=== PATIENT | male | born 1930 | race Caucasian/White ===

== ENCOUNTER 2016-12-04 03:20 | Inpatient (IN) ==
[2016-12-04 04:05] LABS: Basophils # 0.1 10*3/uL (0.0-0.2); Basophils % 0.4 % (0.0-0.8); Eosinophils % 0.1 % (0.00-10.9); Hemoglobin 14.2 GM/DL (14.0-18.0); Immature Granulocytes % 0.5 %; Immature Granulocytes Absolute 0.08 #; Lymphocytes % 5.9 % (21.2-54.2); Mean Corpuscular HGB Conc 34.6 GM/DL (32-36); Mean Corpuscular Hemoglobin 30 PG (27-34); Mean Corpuscular Volume 86.7 FL (87-102); Mean Platelet Volume 10.5 FL (9.6-12.0); Monocytes # 1.7 10*3/uL (0.11-0.8); Monocytes % 9.7 % (1.7-12.7); Neutrophils # 14.2 10*3/uL (1.4-7.4); Neutrophils % 83.4 % (38.7-73.9); Platelet Count 130 T/CUMM (130-400); Red Blood Count 4.73 MC/CUMM (3.8-5.5); Red Cell Distribution Width 13.2 % (9.3-17.3)
[2016-12-04 04:11] LABS: Apearance,Urine Slightly Hazy (Clear); Bacteria,Urine Occasional /HPF (Few); Bilirubin,Urine Negative (Negative); Blood, Urine Negative (Negative); Glucose,Urine (UA) 50 mg/dL (Negative); Hyaline Casts,Urine 1 /LPF (0-3); Ketones,Urine 5 mg/dL (Negative); Mucus,Urine Occasional /LPF (Occasional); Nitrite,Urine Negative (Negative); Protein,Urine 30 MG/DL; RBC,Urine 1 /HPF (0-4); Squamous Epithelial Cell,Urine Occasional /HPF (0-10); Urine Color Yellow (Yellow); Urine Urobilinogen < 2.0 EU/DL (0.2-1.0); WBC,Urine 28 /HPF (0-6)
[2016-12-04 04:11] LABS: ABG Base Excess 1.6 MMOL/L (-2.5-2.5); ABG HCO3 25.7 MMOL/L (20-26); ABG Oxygen Saturation 93.2 % (95-100); ABG PCO2 37.4 MM HG (35-48); ABG PH 7.442 (7.35-7.45); ABG PO2 64.3 MM HG (80-95); ABG TCO2 21.8 MMOL/L (23-27); Allen Test Positive
[2016-12-04 04:17] LABS: Albumin 3.4 G/DL (3.4-5.0); Bilirubin,Total 0.9 MG/DL (0.2-1.0); Calcium 8.7 MG/DL (8.5-10.1); Osmolality,Calculated 291.3 MOS/KG (273-304); Potassium 3.9 MMOL/L (3.5-5.1); Total Protein 7.2 G/DL (6.4-8.3)
[2016-12-04 04:18] LABS: Troponin I Only 0.106 NG/ML (0.00-0.045)
--- NOTE | 2016-12-04 04:24 | Emergency Department Note ---
IJoyce Sierra, am scribing for, and in the presence of, Mehrdad Yanes MD 03: 50. IFarzana Andrew, MD, personally performed the services described in this documentation, ascribed by Faviola Cook in my presence, and it is both accurate and complete [phone] . Arrival - Arrival Chief Complaint: Shortness of Breath Stated Complaint: shortness of breath, fever ED Nursing Triage Note: C/C sent from [facility] for fever and shortness of breath, started tonight Mode of Arrival: Stretcher Limitations: No Limitations Source: Family Time Seen by Provider: 12/04/16 03:39 - History of Present Illness HPI Narrative: Pt is a 86 y/o male that was brought to the ED via EMS from [facility] with c/o SOB and fever that began about 2 hours ago according to family. Pt is somnolent and not answering questions so HPI was obtained from family present. Family present has not seen pt in 3 days so has been unaware of pt's sxs. Family states she is unaware if pt has had diarrhea or cough but pt has had weight loss. Family denies pt being on O2 at home. Family reports pt has a PMHx of cardiomyopathy, Alzheimer disease, and a pacemaker. Family states pt has a Hx of UTIs and being hospitalized for being sepsis. Family states [place] sent pt due to possible pneumonia. Family reports pt has not been acting differently lately. No other complaints/pain in ED. Onset (ago): hour(s) Consistency: constant Severity: moderate Severity scale (1-10): 7 Allergies/Adverse Reactions: Allergies Allergy/AdvReac Type Severity Reaction Status Date / Time Iodinated Contrast Media - Allergy Severe SHORTNESS Verified 05/21/15 07:21 Oral and OF BREATH cefuroxime [From Ceftin] Allergy Unknown/Unable Verified 12/04/16 03:33 to obtain clarithromycin Allergy Unknown/Unable Verified 12/04/16 03:33 to obtain iodine Allergy ANAPHYLAXIS Verified 12/04/16 03:33 acetaminophen [From Tylenol] AdvReac Intermediate Confusion Verified 05/21/15 07 :21 Home Medications: Home Medications Medication Instructions Recorded Confirmed Type Ascorbic Acid [Vitamin C] 1,000 mg PO DAILY 05/21/15 05/21/15 History Docusate Sodium Cap [Colace Cap] 100 mg PO DAILY 05/21/15 05/21/15 History Donepezil [Aricept] 10 mg PO DAILY 05/21/15 05/21/15 History Dutasteride [Avodart] 0.5 mg PO DAILY 05/21/15 05/21/15 History Furosemide Tab [Lasix Tab] 40 mg PO DAILY 05/21/15 05/21/15 History Memantine [Namenda] 10 mg PO BID 05/21/15 05/21/15 History Oxymetazoline 0.05% Nasal Spr 2 spray BOTH NARES BID PRN 05/21/15 05/21/15 History [Afrin Nasal [place]] Polyethylene Glycol Powder 17 gm PO DAILY PRN 05/21/15 05/21/15 History [Miralax] Tamsulosin [Flomax] 0.4 mg PO BID 05/21/15 05/21/15 History Venlafaxine HCl [Effexor XR] 150 mg PO DAILY 05/21/15 05/21/15 History Review of System - Review of System 12 point system: reviewed and no additional remarkable complaints except as stated (ROS is limited due to family present not seeing pt in a few days and pt not answering questions) - Review of System Constitutional: Present: fever Respiratory: Present: other (SOB) Medical,Surgical,& Family Hx - Medical History Cardio: History of: Cardiac Dysrhythmia (A-fib), Pacemaker Neurology: History of: Dementia (Alheimer's) No history of: Seizures Endocrine: History of: Dyslipidemia Gastrointestinal: History of: GI Problems (Constipation) - Social History Smoking Status: Unknown if ever smoked Frequency of Alcohol Use: None Type of Drug Use: None Exam Vital Signs: Vital Signs Temperature 98.3 F 12/04/16 03:20 Pulse Rate 106 H 12/04/16 03:20 Respiratory Rate 24 12/04/16 03:20 Blood Pressure 97/61 12/04/16 03:20 O2 Sat by Pulse Oximetry 88 L 12/04/16 03:20 - General Exam limited due to: other (altered but baseline; pt not answering questions) General appearance: other (somnolent) - Head Head exam: Present: atraumatic, normocephalic - Eye Eye exam: Present: PERRL, EOMI - ENT ENT exam: Present: mucous membranes moist. Absent: mucous membranes dry - Neck Neck exam: Present: full ROM - Chest Chest inspection: Present: symmetric chest wall rise, other (pacemaker that can be palpated on the left anterior chest) - Respiratory Respiratory exam: Present: normal lung sounds bilaterally, other (tachypnic). Absent: respiratory distress - Cardiovascular Cardiovascular exam: Present: regular rate, normal rhythm, normal heart sounds - Abdominal Exam Abdominal exam: Present: soft - Extremities Exam Extremities exam: Present: other (1+ piting edema in the lower extremities) - Neurological Exam Neurological exam: Present: alert (alert but not answering questions) - Psychiatric Psychiatric exam: Present: normal affect, normal mood - Skin Skin exam: Present: warm, dry Course Course Narrative: CXR with evidence of new infiltrate along right heart border. Levaquin given. Elevated WBC 17. Discussed with Hospitalist for admit for further management. Results - Labs CBC & BMP: 12/04/16 03:48 12/04/16 03:48 Lab Results: I have reviewed the patients labs Labs: Laboratory Tests 12/04/16 12/04/16 03:40 03:48 WBC 17.0 H Hct 41.0 L MCV 86.7 L Neut % (Auto) 83.4 H Lymph % (Auto) 5.9 L Neut # (Auto) 14.2 H Lymph # (Auto) 1.0 L Coke # (Auto) 1.7 H ABG pO2 64.3 L ABG Total CO2 21.8 L ABG O2 Saturation 93.2 L Laboratory Tests 12/04/16 03:48 Urine Color Yellow Urine Appearance Slightly hazy Urine pH 5.0 Ur Specific Heth 1.020 Urine Protein 30 Urine Glucose (UA) 50 Urine Ketones 5 Urine Blood Negative Urine Nitrate Negative Urine Bilirubin Negative Urine Urobilinogen < 2.0 H Urine Leukocytes Small H Urine RBC 1 Urine WBC 28 Urine WBC Clumps Few Ur Squamous Epith Cells Occasional Urine Bacteria Occasional Hyaline Casts 1 Urine Mucus Occasional Laboratory Tests 12/04/16 03:48 BUN 24 H Glucose 223 H Troponin I 0.106 H Globulin 3.8 H Albumin/Globulin Ratio 0.8 L Laboratory Tests 12/04/16 03:48 D-Dimer, Quantitative 0.7 Laboratory Tests 12/04/16 03:48 B-Natriuretic Peptide 710 H - Diagnostic Findings Procedure: Chest x-ray: image reviewed by me (Chronic changes as well as new infiltrate along right heart border per my read) Disposition Clinical Impression: Pneumonia Case discussed with: patient, patient's family Disposition: Still a Patient Condition: Guarded
[2016-12-04] MEDS ORDERED: LEVOFLOXACIN INJ 750 MG in PREMIX 1 EACH IV STA (04:25)
[2016-12-04] MEDS ORDERED: LEVOFLOXACIN INJ 150 ML IV ONE (04:54)
--- NOTE | 2016-12-04 06:12 | Hospitalist History & Physical ---
Assessment and Plan (1) Sepsis Status: Acute Assessment and plan: Health Care associated pnemonia/sepsis/acute hypoxic respiratory failure - oxygen - IVF - IV Doxycycline /Levaquin; will escalate therapy if no improvement - Nebulizer treatments - No blood cultures started in ER prior to ABX - D-dimer marginally elevated; will opt not to image at this point - echo ordered - will monitor Current Visit: Yes (2) Acute respiratory failure Status: Acute Assessment and plan: see above Current Visit: Yes Qualifiers: Respiratory failure complication: hypoxia Qualified Code(s): J96.01 - Acute respiratory failure with hypoxia (3) Elevated troponin Status: Acute Assessment and plan: Elevated cardiac enzymes - may be due to infection - telemetry - serial cardiac enzymes - echo ordered - will monitor Current Visit: Yes (4) Pneumonia Status: Acute Current Visit: Yes History of Present Illness Chief complaint: Shortness of breath History of present illness: Mr. Elena is a 86 year old male [facility] resident at [facility] with a history of dementia, coronary artery disease, and pacemaker that presented to ER for acute shortness of breath that started about 130A< this morning. Patient has also had some coughing and subjective. Daughter is at bedside. She reports that when she showed up to see patient he was having some difficulty breathing so she instructed penitentiary to send him to the ER. Due to dementia, patient is unable to participate in the history taking. Per daughter patient is at his mental baseline. Patient had a UTI about 3 weeks ago. ER workup showed the patient had pneumonia with sepsis (hypoxia, tachycardia, leukocytosis, and fever. Home Medications Medication Instructions Recorded Confirmed Type Ascorbic Acid [Vitamin C] 1,000 mg PO DAILY 05/21/15 05/21/15 History Docusate Sodium Cap [Colace Cap] 100 mg PO DAILY 05/21/15 05/21/15 History Donepezil [Aricept] 10 mg PO DAILY 05/21/15 05/21/15 History Dutasteride [Avodart] 0.5 mg PO DAILY 05/21/15 05/21/15 History Furosemide Tab [Lasix Tab] 40 mg PO DAILY 05/21/15 05/21/15 History Memantine [Namenda] 10 mg PO BID 05/21/15 05/21/15 History Oxymetazoline 0.05% Nasal Spr 2 spray BOTH NARES BID PRN 05/21/15 05/21/15 History [Afrin Nasal [place]] Polyethylene Glycol Powder 17 gm PO DAILY PRN 05/21/15 05/21/15 History [Miralax] Tamsulosin [Flomax] 0.4 mg PO BID 05/21/15 05/21/15 History Venlafaxine HCl [Effexor XR] 150 mg PO DAILY 05/21/15 05/21/15 History Allergies Allergy/AdvReac Type Severity Reaction Status Date / Time Iodinated Contrast Media - Allergy Severe SHORTNESS Verified 05/21/15 07:21 Oral and OF BREATH cefuroxime [From Ceftin] Allergy Unknown/Unable Verified 12/04/16 03:33 to obtain clarithromycin Allergy Unknown/Unable Verified 12/04/16 03:33 to obtain iodine Allergy ANAPHYLAXIS Verified 12/04/16 03:33 acetaminophen [From Tylenol] AdvReac Intermediate Confusion Verified 05/21/15 07 :21 Medical,Surgical,& Family Hx - Medical History Cardio: History of: Cardiac Dysrhythmia (A-fib), Pacemaker Neurology: History of: Dementia (Alheimer's) No history of: Seizures Endocrine: History of: Dyslipidemia Gastrointestinal: History of: GI Problems (Constipation) - Social History Smoking Status: Unknown if ever smoked Frequency of Alcohol Use: None Type of Drug Use: None ROS unobtainable: due to mental status Exam - Constitutional Vitals: Period Temp Pulse Resp BP Sys/Reid Pulse Ox Last 24 Hr 98.3 F-98.3 F 106-106 24-24 97-97/61-61 88 General appearance: normal weight, no acute distress - Head Head exam: Present: normal inspection, normocephalic - Neck Neck exam: Present: normal inspection - Respiratory Respiratory exam: Present: decreased breath sounds, rhonchi (on the right), other (coarse breath sounds throughout) - Cardiovascular Cardiovascular exam: Present: diastolic murmur, regular rate and rhythm, systolic murmur - GI/Abdominal GI/Abdominal exam: Present: normal bowel sounds, soft. Absent: distended, tenderness - Extremities Exam Extremities exam: Absent: edema - Neurological Exam Neurological exam: Present: altered (but at baseline) - Skin Skin exam: Present: normal color, warm, dry Results - Labs CBC & BMP: 12/04/16 03:48 12/04/16 03:48 - EKG EKG results: interpreted by REEMA - Diagnostic Findings Procedure: Chest x-ray: pending
[2016-12-04] MEDS ORDERED: LACTULOSE 20 GM/30 ML UDCUP PO PRN (08:05)
[2016-12-04] MEDS ORDERED: DOCUSATE SODIUM 100 MG CAPSULE PO PRN (08:05)
[2016-12-04] MEDS ORDERED: guaiFENesin/DM ER 600-30 MG TABLET PO PRN (08:05)
[2016-12-04] MEDS ORDERED: ONDANSETRON 4 MG/2 ML VIAL IV PRN (08:05)
--- NOTE | 2016-12-04 08:33 | XRay Report ---
XR chest 1V portable Indication: Shortness of breath Comparison: 21 May 2015 Findings: The heart and mediastinum are stable in size and configuration. Pacemaker device is unchanged in position. The pulmonary vascularity is increased with bilateral increased interstitial lung density. No other lung infiltrates, effusions, pneumothorax or other abnormality is demonstrated. Impression: Findings suggest cardiac decompensation. PROCEDURE INTERPRETED AT [facility] DEPARTMENT OF RADIOLOGY Final Report Signed by: Dr. Aly Webb
--- NOTE | 2016-12-04 09:19 | EKG Report ---
Stationary ECG Study [facility] ER Test Date: 12/04/2016 3:23:20 AM Pat Name: SAGAR HUERTA Department: Room: 517 Gender: M Alteration Worker: MATTY : 1930 Requested by: Mehrdad Yanes Order Number: [id number] Reading MD: JESUS GANDARA Intervals [place] Rate: 92 P: 55 HI: 311 QRS: 70 QRSD: 130 T: 4 QT: 408 QTc: 458 Interpretive Statements ELECTRONIC ATRIAL PACEMAKER LEFT VENTRICULAR HYPERTROPHY AND ST-T CHANGE Electronically Signed On 12-06-16 16:29:45 CDT by JESUS GANDARA [email or web address]
[2016-12-04] MEDS: ENOXAPARIN 40 MG/0.4 ML SYRINGE SUBCUT SCH (09:51)
[2016-12-04] MEDS: SODIUM CHLORIDE 0.9% 1,000 ML IV SCH (09:52)
[2016-12-04] MEDS: PANTOPRAZOLE 40 MG TABLET PO SCH (09:52)
[2016-12-04] MEDS: DOXYCYCLINE HYCLATE INJ 100 MG in SODIUM CHLORIDE 0.9% 100 ML IV SCH ×2 (09:52→20:43)
[2016-12-04] MEDS: IBUPROFEN 600 MG TABLET PO PRN ×2 (11:23→19:35)
[2016-12-04] MEDS: ALBUTEROL/IPRATROPIUM 3 ML NEB RESP TX SCH ×3 (13:43→20:28)
[2016-12-04 18:48] LABS: Troponin I Only 0.098 NG/ML (0.00-0.045)
[2016-12-05] MEDS: ALBUTEROL/IPRATROPIUM 3 ML NEB RESP TX SCH ×4 (01:03→19:30)
[2016-12-05] MEDS: SODIUM CHLORIDE 0.9% 1,000 ML IV SCH ×3 (01:15→17:40)
[2016-12-05 04:26] LABS: Basophils # 0.1 10*3/uL (0.0-0.2); Basophils % 0.5 % (0.0-0.8); Eosinophils % 0.2 % (0.00-10.9); Hematocrit 38.4 VOL% (42.0-52.0); Hemoglobin 12.7 GM/DL (14.0-18.0); Immature Granulocytes % 0.6 %; Immature Granulocytes Absolute 0.08 #; Lymphocytes # 1.2 10*3/uL (1.4-4.0); Lymphocytes % 9.3 % (21.2-54.2); Mean Corpuscular HGB Conc 33.1 GM/DL (32-36); Mean Corpuscular Hemoglobin 29 PG (27-34); Mean Corpuscular Volume 88.9 FL (87-102); Mean Platelet Volume 11.6 FL (9.6-12.0); Monocytes % 7.8 % (1.7-12.7); Neutrophils # 10.8 10*3/uL (1.4-7.4); Neutrophils % 81.6 % (38.7-73.9); Platelet Count 102 T/CUMM (130-400); Red Blood Count 4.32 MC/CUMM (3.8-5.5); Red Cell Distribution Width 13.4 % (9.3-17.3); White Blood Count 13.3 T/CUMM (4-12)
[2016-12-05 04:55] LABS: Albumin 2.6 G/DL (3.4-5.0); Bilirubin,Total 1.2 MG/DL (0.2-1.0); Calcium 8.1 MG/DL (8.5-10.1); Osmolality,Calculated 298.4 MOS/KG (273-304); Potassium 3.8 MMOL/L (3.5-5.1); Total Protein 6.1 G/DL (6.4-8.3)
[2016-12-05 04:56] LABS: Troponin I Only 0.077 NG/ML (0.00-0.045)
[2016-12-05] MEDS: LEVOFLOXACIN INJ 500 MG in PREMIX 1 EACH IV SCH (05:48)
[2016-12-05] MEDS: ENOXAPARIN 40 MG/0.4 ML SYRINGE SUBCUT SCH (08:29)
[2016-12-05] MEDS: PANTOPRAZOLE 40 MG TABLET PO SCH (08:29)
[2016-12-05] MEDS: DOXYCYCLINE HYCLATE INJ 100 MG in SODIUM CHLORIDE 0.9% 100 ML IV SCH ×2 (08:29→20:38)
[2016-12-05 09:52] LABS: Troponin I Only 0.066 NG/ML (0.00-0.045)
--- NOTE | 2016-12-05 11:01 | Hospitalist Progress Note ---
Assessment and Plan (1) Healthcare-associated pneumonia Status: Acute Assessment and plan: continue with IV antibiotics BC-negative so far Current Visit: Yes (2) Acute respiratory failure Status: Acute Assessment and plan: with Hypoxia and elevated Ddimer. We will get a VQ scan and doppler of the legs, patient has allergies to dye. Current Visit: Yes Qualifiers: Respiratory failure complication: hypoxia Qualified Code(s): J96.01 - Acute respiratory failure with hypoxia (3) Elevated troponin Status: Acute Assessment and plan: Levels are trending downwards. patient has a pacemaker in place.This may may be due to ? infection vs cardiac bruise Plan Echocardiogram get more levels Current Visit: Yes (4) Dementia Status: Acute Assessment and plan: Patient was confused but awake. Plan CT head to r/o any acute issues Current Visit: Yes Hospitalist: Subjective Interval history: Patient was awake but confused, he has an underlying dementia. Exam - Constitutional Vitals: Period Temp Pulse Resp BP Sys/Reid Pulse Ox Last 24 Hr 97.2 F-99.7 F 61-87 19-28 105-145/54-79 89-99 General appearance: no acute distress - Head Head exam: Present: normal inspection - Respiratory Respiratory exam: Present: clear to auscultation bilaterally - Cardiovascular Cardiovascular exam: Present: regular rate and rhythm - GI/Abdominal GI/Abdominal exam: Present: normal bowel sounds - Extremities Exam Extremities exam: Present: other - Neurological Exam Neurological exam: Present: alert, other (confused) Results - Labs CBC & BMP: 12/05/16 03:24 12/05/16 03:24 Lab Results: I have reviewed the past 24 hour labs
--- NOTE | 2016-12-05 12:01 | CT Report ---
CT brain Indication: Altered mental status Comparison: 12 January 2012 Technique: Axial CT imaging of the brain is performed without contrast with 3 mm increments. Findings: No evidence of hemorrhage, mass mass effect midline shift or acute infarct seen. There is moderate to severe diffuse cerebral atrophy. There are areas of decreased density seen within the white matter. Otherwise the brain parenchyma attenuation and differentiation appears within normal limits. The ventricles and cisterns are normal in caliber. No cranial or skull base abnormality is identified. Impression: No evidence of acute process or interval change. This CT exam was performed using one or more the following dose reduction techniques: Automated exposure control, adjustment of the MA and/or KV according to patient size, or use of iterative reconstruction technique. PROCEDURE INTERPRETED AT [facility] DEPARTMENT OF RADIOLOGY Final Report Signed by: Dr. Aly Webb
[2016-12-05 12:11] LABS: Troponin I Only 0.072 NG/ML (0.00-0.045)
--- NOTE | 2016-12-05 14:30 | Nuclear Medicine Report ---
Nuclear medicine ventilation/perfusion scan Indication: Shortness of breath Findings: Ventilation scan: The patient received 40 mCi of 90 9M technetium DTPA aerosolized. There is normal distribution of radiotracer in both lungs. Perfusion scan: Patient received 5.0 mCi of 90 9M technetium MAA intravenously. There is normal in distribution of radiotracer in both lungs without evidence of segmental or greater defects. Impression: Normal nuclear medicine ventilation perfusion scan. This indicates low probability for pulmonary embolism. PROCEDURE INTERPRETED AT [facility] DEPARTMENT OF RADIOLOGY Final Report Signed by: Dr. Aly Webb
--- NOTE | 2016-12-05 14:46 | Ultrasound Report ---
Venous Doppler ultrasound bilateral lower extremities Indication: Shortness of breath Comparison: None available Findings: No evidence of echogenic, noncompressible thrombus seen in the visualized veins of the extremities. Color Doppler venous waveform pattern is within normal limits. Impression: No evidence of deep venous thrombosis. Ultrasound images stored and captured. PROCEDURE INTERPRETED AT [facility] DEPARTMENT OF RADIOLOGY Final Report Signed by: Dr. Aly Webb
--- NOTE | 2016-12-05 18:03 | ECHO Report ---
Royce Elena Exam Date: 12/04/2016 12:02 Referring Physician: Technologist: Kasia Burt Age: 86 Ht (in): 70 Wt (lb): 160 Gender: M Exam Location: [facility] Echo Indications: pacemaker, elevated troponin, acute resp failure, sepsis, pneumonia BP: 107 / 50 HR: 63 Rhythm: Sinus Technical Quality: Technically difficult study, limited IMPRESSIONS 1. This is a very limited study overall poor visualization. 2. The left ventricle is probably upper limits of normal size but poorly visualized. Ejection fraction is 50% plus/minus. Wall thickness is difficult to accurately measure. 3. Right ventricle mitral probably normal size and there is a possibility of pacemaker leads present. 4. Mildly increased left atrial size 5. Mitral valve sclerotic and thickened with possible mild regurgitation. 6. Valve is not well visualized but appears to be thick sclerotic and thickened. There is probably some element of aortic valve stenosis and may be moderate. 7. Tricuspid and pulmonic valves were not adequately visualized. 8. There appears to be a pleural effusion present. MEASUREMENTS (Male / Female) Normal Values 2D ECHO LV Diastolic Diameter PLAX 3.6 cm 4.2 - 5.9 / 3.9 - 5.3 cm LV Systolic Diameter PLAX 2.5 cm LV Fractional Shortening PLAX 31.5 % IVS Diastolic Thickness 2.1 cm 0.6 - 1.0 / 0.6 - 0.9 cm LVPW Diastolic Thickness 1.4 cm 0.6 - 1.0 / 0.6 - 0.9 cm RV Internal Dim ED PLAX 2.3 cm Aortic Root Diameter 2.5 cm LA Systolic Diameter LX 4.5 cm 3.0 - 4.0 / 2.7 - 3.8 cm FINDINGS Left Ventricle Left ventricle is probably upper limits of normal size. Left ventricular function is difficult to accurately determine but may be in the lower limits of normal but could be slightly depressed. Ejection fraction is probably 50% plus/minus. Wall thickness is difficult to accurately measure. Right Ventricle Normal right ventricular size. Possible pacemaker lead present. Right Atrium Normal right atrial size. There appears possibly be a pacemaker lead present. Left Atrium Mildly increased left atrial diameter. Mitral Valve Mitral valve is sclerotic and thickened with possible mild regurgitation. Aortic Valve Aortic valve is not well-visualized. It does appear to be sclerotic and thickened. The severity of aortic stenosis present is difficult to measure but may be moderate. Tricuspid Valve Morphologically normal tricuspid valve. Trace tricuspid valve regurgitation. Pulmonic Valve Pulmonic valve not well visualized. Pericardium No pericardial effusion. + pleural effusion. Aorta Normal size aortic root and proximal ascending aorta. Perez Nichole MD (Electronically Signed) Final Date: 05 Dec 2016 18:02
[2016-12-06] MEDS: ALBUTEROL/IPRATROPIUM 3 ML NEB RESP TX SCH ×4 (00:22→20:28)
[2016-12-06] MEDS: LEVOFLOXACIN INJ 500 MG in PREMIX 1 EACH IV SCH (05:17)
[2016-12-06 05:55] LABS: Basophils # 0.1 10*3/uL (0.0-0.2); Basophils % 0.5 % (0.0-0.8); Eosinophils # 0.2 10*3/uL (0.0-0.87); Eosinophils % 2.2 % (0.00-10.9); Hematocrit 38.6 VOL% (42.0-52.0); Hemoglobin 12.7 GM/DL (14.0-18.0); Immature Granulocytes % 0.4 %; Immature Granulocytes Absolute 0.04 #; Lymphocytes # 1.4 10*3/uL (1.4-4.0); Lymphocytes % 12.9 % (21.2-54.2); Mean Corpuscular HGB Conc 32.9 GM/DL (32-36); Mean Corpuscular Hemoglobin 30 PG (27-34); Mean Platelet Volume 11.7 FL (9.6-12.0); Monocytes # 0.9 10*3/uL (0.11-0.8); Monocytes % 8.4 % (1.7-12.7); Neutrophils # 8.4 10*3/uL (1.4-7.4); Neutrophils % 75.6 % (38.7-73.9); Platelet Count 110 T/CUMM (130-400); Red Blood Count 4.29 MC/CUMM (3.8-5.5); Red Cell Distribution Width 13.7 % (9.3-17.3); White Blood Count 11.1 T/CUMM (4-12)
[2016-12-06 06:27] LABS: Calcium 8.1 MG/DL (8.5-10.1); Osmolality,Calculated 296.3 MOS/KG (273-304); Potassium 3.8 MMOL/L (3.5-5.1)
[2016-12-06] MEDS: PANTOPRAZOLE 40 MG TABLET PO SCH (08:33)
[2016-12-06] MEDS: ENOXAPARIN 40 MG/0.4 ML SYRINGE SUBCUT SCH (08:33)
[2016-12-06] MEDS: DOXYCYCLINE HYCLATE INJ 100 MG in SODIUM CHLORIDE 0.9% 100 ML IV SCH ×2 (08:34→20:38)
--- NOTE | 2016-12-06 08:56 | Hospitalist Progress Note ---
<Shannon Laguerre - Last Filed: 12/06/16 08:58> Assessment and Plan (1) Acute respiratory failure Status: Acute Assessment and plan: VQ scan and venous doppler negative for PE; respiratory status stable at this time. Will monitor. Current Visit: Yes Qualifiers: Respiratory failure complication: hypoxia Qualified Code(s): J96.01 - Acute respiratory failure with hypoxia (2) Dementia Status: Acute Current Visit: Yes (3) Elevated troponin Status: Acute Assessment and plan: Troponins have normalized; no complaints of chest pain or EKG changes noted. Will continue to monitor. Current Visit: Yes Hospitalist: Subjective Interval history: Patient seen and examined; no significant overnight events reported. Family at bedside inquiring about discharge. Exam - Constitutional Vitals: Period Temp Pulse Resp BP Sys/Reid Pulse Ox Last 24 Hr 98.3 F-99.7 F 62-103 17-24 113-142/50-84 88-99 General appearance: normal weight - Head Head exam: Present: normal inspection, normocephalic, atraumatic - Eye Eye exam: Present: EOMI. Absent: conjunctival injection Pupils: Present: JAZMINE, normal accommodation - ENT ENT exam: Present: normal exam, normal external ear exam, normal oropharynx - Neck Neck exam: Present: normal inspection. Absent: lymphadenopathy, meningismus, tenderness, thyromegaly - Respiratory Respiratory exam: Present: clear to auscultation bilaterally. Absent: rales, rhonchi, stridor, wheezes - Cardiovascular Cardiovascular exam: Present: regular rate and rhythm. Absent: carotid bruit, diastolic murmur, gallop, JVD, rubs, systolic murmur - GI/Abdominal GI/Abdominal exam: Present: normal bowel sounds, soft - Extremities Exam Extremities exam: Present: normal capillary refill, edema (Trace edema) - Back Exam Back exam: Present: normal inspection - Neurological Exam Neurological exam: Present: alert, altered - Psychiatric Psychiatric exam: Present: normal affect, normal mood - Skin Skin exam: Present: normal color, warm, dry Results - Labs CBC & BMP: 12/06/16 04:41 12/06/16 04:41 Lab Results: I have reviewed the past 24 hour labs <Rita Peng - Last Filed: 12/06/16 15:38> Assessment and Plan (1) Healthcare-associated pneumonia Status: Acute Current Visit: Yes (2) Acute respiratory failure Status: Acute Current Visit: Yes Qualifiers: Respiratory failure complication: hypoxia Qualified Code(s): J96.01 - Acute respiratory failure with hypoxia (3) Elevated troponin Status: Acute Current Visit: Yes (4) Dementia Status: Acute Current Visit: Yes (5) Healthcare-associated pneumonia Status: Acute Assessment and plan: contine with IV antibiotics Current Visit: Yes Exam - Constitutional Vitals: Period Temp Pulse Resp BP Sys/Reid Pulse Ox Last 24 Hr 97.6 F-99.7 F 62-103 16-20 106-142/50-84 92-98 Results - Labs CBC & BMP: 12/06/16 04:41 12/06/16 04:41
[2016-12-06] MEDS ORDERED: HALOPERIDOL 5 MG/ML AMP IV PRN (15:39)
[2016-12-07] MEDS: ALBUTEROL/IPRATROPIUM 3 ML NEB RESP TX SCH ×4 (01:38→21:06)
[2016-12-07] MEDS: LEVOFLOXACIN INJ 500 MG in PREMIX 1 EACH IV SCH (05:53)
[2016-12-07] MEDS: SODIUM CHLORIDE 0.9% 1,000 ML IV SCH ×3 (07:00→09:59)
--- NOTE | 2016-12-07 09:33 | XRay Report ---
Portable chest Date: 12/07/2016 Clinical history: Shortness of breath, pneumonia Comparison: 12/04/2016 Technique: Portable AP sitting chest Findings: Stable cardiomegaly and left subclavian atrioventricular pacemaker. Prominent pulmonary vasculature/hollow with progressive diffuse parenchymal findings was larger small bilateral pleural effusions. Degenerative changes are noted. Impression: Progressive moderate CHF with enlarging small pleural effusions. Persistent prominent josé luis which may be related to prominent vasculature but is difficult to exclude adenopathy, etc. especially on the right and follow-up chest x-ray recommended. Left subclavian atrioventricular pacemaker. PROCEDURE INTERPRETED AT [facility] DEPARTMENT OF RADIOLOGY Final Report Signed by: Dr. Leslie Liz
[2016-12-07] MEDS: PANTOPRAZOLE 40 MG TABLET PO SCH (09:54)
[2016-12-07] MEDS: DOXYCYCLINE HYCLATE INJ 100 MG in SODIUM CHLORIDE 0.9% 100 ML IV SCH ×2 (09:54→20:20)
[2016-12-07] MEDS: ENOXAPARIN 40 MG/0.4 ML SYRINGE SUBCUT SCH (10:07)
[2016-12-07 10:17] LABS: Troponin I Only 0.062 NG/ML (0.00-0.045)
--- NOTE | 2016-12-07 12:15 | Hospitalist Progress Note ---
<Shannan Patel - Last Filed: 12/07/16 12:12> Assessment and Plan - Time spent with patient Time spent with patient: Greater than 30 minutes (1) Dementia Status: Acute Assessment and plan: 86-year-old white male admitted with healthcare associated pneumonia/sepsis/ acute hypoxic respiratory failure and elevated troponins he has been on IV antibiotics and nebulizer treatments. His echo was okay, lower extremity ultrasound shows no DVT. Patient's x-ray today showing progressive pleural effusions from CHF. Patient is not on any fluids and may need to be started on some Lasix. Patient is mildly tachypneic just from his activity of eating lunch. Will discuss this with and further recommendations to follow. Current Visit: No (2) Pneumonia Status: Acute Current Visit: Yes (3) Sepsis Status: Acute Current Visit: Yes (4) Acute respiratory failure Status: Acute Current Visit: Yes Qualifiers: Respiratory failure complication: hypoxia Qualified Code(s): J96.01 - Acute respiratory failure with hypoxia (5) Elevated troponin Status: Acute Current Visit: Yes Hospitalist: Subjective Interval history: Patient is sitting up in bed eating lunch with his daughter's assistance. He seems to be eating well but he is mildly tachypneic with this activity. Exam - Constitutional Vitals: Period Temp Pulse Resp BP Sys/Reid Pulse Ox Last 24 Hr 98.8 F-99.1 F 66-78 16-22 104-159/48-79 91-99 Exam: 86-year-old white male, no acute distress Chest clear CV regular rate and rhythm Abdomen soft and nontender Extremities no edema Results - Labs CBC & BMP: 12/06/16 04:41 12/06/16 04:41 Lab Results: I have reviewed the past 24 hour labs - Diagnostic Findings Procedure: Chest x-ray: report reviewed by me (Progressive moderate CHF with enlarging small pleural effusions. Persistent prominent josé luis which may be related to prominent vasculature but difficult to exclude adenopathy) <Rita Peng - Last Filed: 12/07/16 14:10> Assessment and Plan (1) Healthcare-associated pneumonia Status: Acute Current Visit: Yes (2) Acute respiratory failure Status: Acute Current Visit: Yes Qualifiers: Respiratory failure complication: hypoxia Qualified Code(s): J96.01 - Acute respiratory failure with hypoxia (3) Elevated troponin Status: Acute Current Visit: Yes (4) Dementia Status: Acute Current Visit: Yes (5) Healthcare-associated pneumonia Status: Acute Current Visit: Yes Hospitalist: Subjective Interval history: patient seen today. CXR showed progressive moderate CHF. family also concerned that patient may be having swallowing problems.Echo showed EF-+/-50% with wall thickness difficult to measure accurately. Plan -Hold IVF -Start IV Lasix 40mg bid -bmp in am -Swallowing study-speech consult PT consult Exam - Constitutional Vitals: Period Temp Pulse Resp BP Sys/Reid Pulse Ox Last 24 Hr 97.2 F-99.1 F 66-78 16-22 104-159/48-79 91-99 Results - Labs CBC & BMP: 12/06/16 04:41 12/06/16 04:41
[2016-12-07] MEDS: FUROSEMIDE 40 MG/4 ML VIAL IV SCH (15:10)
[2016-12-08] MEDS: ALBUTEROL/IPRATROPIUM 3 ML NEB RESP TX SCH ×4 (01:40→19:12)
[2016-12-08] MEDS: LEVOFLOXACIN INJ 500 MG in PREMIX 1 EACH IV SCH (06:29)
[2016-12-08 06:33] LABS: Calcium 8.8 MG/DL (8.5-10.1)
[2016-12-08 06:34] LABS: Osmolality,Calculated 298.4 MOS/KG (273-304); Potassium 3.5 MMOL/L (3.5-5.1)
[2016-12-08] MEDS: DOXYCYCLINE HYCLATE INJ 100 MG in SODIUM CHLORIDE 0.9% 100 ML IV SCH ×2 (08:59→20:31)
[2016-12-08] MEDS: FUROSEMIDE 40 MG/4 ML VIAL IV SCH ×2 (09:00→17:20)
[2016-12-08] MEDS: PANTOPRAZOLE 40 MG TABLET PO SCH (09:00)
[2016-12-08] MEDS: ENOXAPARIN 40 MG/0.4 ML SYRINGE SUBCUT SCH (09:00)
--- NOTE | 2016-12-08 10:19 | Discharge Summary ---
Addendum entered and electronically signed by Shannon Laguerre CNP 12/09/16 08 :11: No significant overnight events. Vital signs are stable. The patient is appropriate for discharge back to [place] today. Original Note: <Shannon Laguerre - Last Filed: 12/08/16 10:33> Hospital Course - Hospital Course Hospital Course: This is a very pleasant 86 year old male that presented to the ED at [facility] on 12/04 from [facility] for evaluation of shortness of breath. The patient has a very extensive medical history significant for dementia, atrial fibrillation, hypertension, hyperlipidema, presbycusis, constipation, pacemaker placement, and benign prostatic hypertrophy. Per custodial report, the patient had an acute onset of symptoms on the early part of that morning. She came to visit and observed him having difficulty and requested that he be sent to the hospital. The patient was assessed and subsequently diagnosed with right lower lobe pneumonia. He was admitted to the hospitalist services for continuation of care. He was treated with antibiotics, corticosteriods, and inhaled bronchodilators. His condition improved. His vital signs are stable. Today, we feel that he is indeed appropriate for discharge back to [place] for continuation of care. Diagnosis - Discharge Diagnosis (1) Acute respiratory failure Status: Acute (2) Dementia Status: Acute (3) Elevated troponin Status: Acute Discharge Plan - Discharge Data Disposition: Disch/Xfer to Snf - Discharge Medications New Albuterol/Ipratropium Neb [Duoneb] 3 ml RESP TX RT Q6H Ibuprofen Tab [Motrin Tab] 600 mg PO Q6H PRN #0 tablet PRN Reason: fever Lactulose Liquid [Chronulac] 20 gm PO Q4H PRN #0 PRN Reason: Constipation Levofloxacin Tab [Levaquin Tab] 750 mg PO DAILY #10 tablet guaiFENesin/DM ER 600-30 [Mucinex Dm 600-30 MG] 1 tablet PO BID PRN #0 tablet PRN Reason: Congestion Pantoprazole Tab [Protonix Tab] 40 mg PO DAILY tablet risperiDONE TAB [RisperDAL TAB] 0.5 mg PO BEDTIME #20 tablet Continue Donepezil [Aricept] 10 mg PO BEDTIME Memantine [Namenda] 10 mg PO BID Ascorbic Acid [Vitamin C] 1,000 mg PO BID Tamsulosin [Flomax] 0.4 mg PO BID Polyethylene Glycol Powder [Miralax] 17 gm PO DIRECTED Dutasteride [Avodart] 0.5 mg PO DAILY Docusate Sodium Cap [Colace Cap] 100 mg PO DAILY Oxymetazoline 0.05% Nasal Spr [Afrin Nasal [place]] 2 spray BOTH NARES BID PRN PRN Reason: Congestion Furosemide Tab [Lasix Tab] 40 mg PO DAILY Levothyroxine Tab [Synthroid Tab] 25 mcg PO DAILY@0700 Venlafaxine [Effexor] 75 mg PO DAILY Melatonin/Pyridoxine HCl (B6) [Melatonin 3 mg Tablet] 1 each PO BEDTIME - Follow Up or Referral - Forms/Instructions Exam - Constitutional Vitals: Period Temp Pulse Resp BP Sys/Reid Pulse Ox Last 24 Hr 98.1 F-98.7 F 62-89 18-22 91-127/58-72 93-98 DS: Provider Date of admission: 12/04/16 05:36 Primary care physician: Nathaniel Boyle Attending physician on admission: Amor German Consults: 12/05/16 15:50 Consult to Dietitian [CONS] Routine Reason for Dietitian: Dietary Consult Supplements and/or Snacks Consult Comment: pt only eating 10-15% of meals 12/07/16 09:53 Consult to Physical Therapy [CONS] Routine Reason for Physical Therapy: Evaluate and Treat Discharging clinician: Shannon Laguerre CNP <Rita Peng - Last Filed: 12/09/16 10:14> Hospital Course - Hospital Course Hospital Course: Patient had an elevated Ddimer, VQ scan- normal, doppler of the legs- negative for a DVT, patient has allergies to dye.Echo showed EF-+/-50% with wall thickness difficult to measure accurately. Patient spent an extra night for more IV antibiotics and proper dc planning. He eats well and speech therapy had recommended soft mechanical diet in the past. Son was concerned about patient getting more restless, confused at night,and wanted something helpful. I would dc on Risperidone 0.5mg at night for the and for his PCP to follow. - Time spent with patient Time with patient DS: Greater than 30 minutes (Time spent:40mins) Diagnosis - Discharge Diagnosis (1) Healthcare-associated pneumonia Status: Acute (2) Acute respiratory failure Status: Acute (3) Elevated troponin Status: Acute (4) Dementia Status: Acute (5) Healthcare-associated pneumonia Status: Acute (6) Hypernatremia Status: Acute Discharge Plan - Discharge Data Condition at Discharge: Stable Discharge Diet: advance to your usual diet Activity: resume usual activities as tolerated - Forms/Instructions Additional Discharge Instructions: follow PCP in 1week Exam - Constitutional General appearance: no acute distress - Head Head exam: Present: normal inspection - Neck Neck exam: Present: normal inspection - Respiratory Respiratory exam: Present: clear to auscultation bilaterally - Cardiovascular Cardiovascular exam: Present: regular rate and rhythm - GI/Abdominal GI/Abdominal exam: Present: normal bowel sounds - Extremities Exam Extremities exam: Present: normal inspection
--- NOTE | 2016-12-08 16:20 | Hospitalist Progress Note ---
Assessment and Plan (1) Healthcare-associated pneumonia Status: Acute Assessment and plan: continue with IV antibiotics BC-negative so far Current Visit: Yes (2) Acute respiratory failure Status: Acute Assessment and plan: with Hypoxia and elevated Ddimer. VQ scan- normal, doppler of the legs- negative for a DVT, patient has allergies to dye. Current Visit: Yes Qualifiers: Respiratory failure complication: hypoxia Qualified Code(s): J96.01 - Acute respiratory failure with hypoxia (3) Elevated troponin Status: Acute Assessment and plan: Levels are trending downwards. Patient has a pacemaker in place.This may may be due to ? infection vs cardiac bruise Plan Echo showed EF-+/-50% with wall thickness difficult to measure accurately. Current Visit: Yes (4) Dementia Status: Acute Assessment and plan: Patient was confused but awake.I suspect that is his baseline mental status. CT head was negative.Follow speech therapy's consult Current Visit: Yes (5) Healthcare-associated pneumonia Status: Acute Assessment and plan: continue with IV antibiotics Current Visit: Yes (6) Hypernatremia Status: Acute Assessment and plan: mild. Continue with free water Current Visit: Yes Hospitalist: Subjective Interval history: Patient seen.He had no new issues.For possible dc in am. Exam - Constitutional Vitals: Period Temp Pulse Resp BP Sys/Reid Pulse Ox Last 24 Hr 97.2 F-98.8 F 65-100 18-22 91-139/58-77 94-99 General appearance: no acute distress - Head Head exam: Present: normal inspection - Respiratory Respiratory exam: Present: clear to auscultation bilaterally - Cardiovascular Cardiovascular exam: Present: regular rate and rhythm - GI/Abdominal GI/Abdominal exam: Present: normal bowel sounds - Extremities Exam Extremities exam: Present: normal inspection Results - Labs CBC & BMP: 12/06/16 04:41 12/08/16 04:42 Lab Results: I have reviewed the past 24 hour labs
[2016-12-09] MEDS: ALBUTEROL/IPRATROPIUM 3 ML NEB RESP TX SCH ×2 (00:09→06:48)
[2016-12-09] MEDS: LEVOFLOXACIN INJ 500 MG in PREMIX 1 EACH IV SCH (07:32)
[2016-12-09] MEDS: ENOXAPARIN 40 MG/0.4 ML SYRINGE SUBCUT SCH (09:16)
[2016-12-09] MEDS: FUROSEMIDE 40 MG/4 ML VIAL IV SCH (09:16)
[2016-12-09] MEDS: DOXYCYCLINE HYCLATE INJ 100 MG in SODIUM CHLORIDE 0.9% 100 ML IV SCH (09:17)
[2016-12-09] MEDS: PANTOPRAZOLE 40 MG TABLET PO SCH (09:17)
[2016-12-09 12:03] VITALS: BP 143/53
== END 2016-12-09 12:45 | DRG 871 ==
LOC: N.ED 03:20 → SUATTDRO 05:36 → N.EDINP 05:36 → N.5E 07:31
PROVIDERS: ADMIT Family Medicine; ATTEND Internal Medicine

== ENCOUNTER 2017-05-14 20:46 | Inpatient (IN) ==
[2017-05-14] MEDS ORDERED: ALBUTEROL/IPRATROPIUM 3 ML NEB RESP TX STA (20:56)
[2017-05-14] MEDS ORDERED: methylPREDNISolone SOD SUC 125 MG/2 ML VIAL IV STA (20:56)
[2017-05-14] MEDS ORDERED: CEFEPIME 2,000 MG in SODIUM CHLORIDE 0.9% 100 ML IV STA (20:57)
[2017-05-14] MEDS ORDERED: VANCOMYCIN INJ 1,000 MG in SODIUM CHLORIDE 0.9% 250 ML IV STA (20:57)
[2017-05-14] MEDS ORDERED: SODIUM CHLORIDE 0.9% 1,000 ML IV STA (20:57)
[2017-05-14] MEDS ORDERED: KETOROLAC 30 MG/1 ML VIAL IV STA (20:58)
[2017-05-14] MEDS ORDERED: KETOROLAC 30 MG/1 ML VIAL ONE (21:02)
[2017-05-14] MEDS ORDERED: VANCOMYCIN 1,000 MG VIAL ONE (21:02)
[2017-05-14] MEDS ORDERED: methylPREDNISolone SOD SUC 125 MG/2 ML VIAL ONE (21:03)
[2017-05-14 21:05] LABS: VBG Base Excess -0.7 MEQ/L (0-4); VBG HCO3 22.6 MEQ/L (24-28); VBG Oxygen Saturation 94.9 %; VBG PCO2 33.7 MMHG (41-51); VBG PH 7.444; VBG PO2 64.4 MMHG (17-40)
[2017-05-14 21:24] LABS: Albumin 3.3 G/DL (3.4-5.0); Bilirubin,Total 0.7 MG/DL (0.2-1.0); Calcium 8.8 MG/DL (8.5-10.1); Osmolality,Calculated 284.7 MOS/KG (273-304); Potassium 4.2 MMOL/L (3.5-5.1); Total Protein 7.5 G/DL (6.4-8.3)
[2017-05-14] MEDS ORDERED: ALBUTEROL NEB SOLN 5 MG/ML 20 ML/BOTTLE CONT NEB STA (22:59)
[2017-05-14] MEDS ORDERED: ALBUTEROL/IPRATROPIUM 3 ML NEB RESP TX PRN (23:54)
[2017-05-14] MEDS ORDERED: ONDANSETRON 4 MG/2 ML VIAL IV PRN (23:54)
[2017-05-15] MEDS ORDERED: PANTOPRAZOLE 40 MG VIAL IV SCH
[2017-05-15] MEDS: ALBUTEROL/IPRATROPIUM 3 ML NEB RESP TX SCH ×3 (00:02→14:42)
[2017-05-15 00:13] LABS: Basophils # 0.1 10*3/uL (0.0-0.2); Basophils % 0.4 % (0.0-0.8); Eosinophils # 0.1 10*3/uL (0.0-0.87); Eosinophils % 0.7 % (0.00-10.9); Hematocrit 44.9 VOL% (42.0-52.0); Hemoglobin 15.5 GM/DL (14.0-18.0); Immature Granulocytes % 0.5 %; Immature Granulocytes Absolute 0.07 #; Lymphocytes # 1.4 10*3/uL (1.4-4.0); Mean Corpuscular HGB Conc 34.5 GM/DL (32-36); Mean Corpuscular Hemoglobin 30 PG (27-34); Mean Corpuscular Volume 86.7 FL (87-102); Mean Platelet Volume 11.7 FL (9.6-12.0); Monocytes # 1.4 10*3/uL (0.11-0.8); Monocytes % 10.3 % (1.7-12.7); Neutrophils # 10.8 10*3/uL (1.4-7.4); Neutrophils % 78.1 % (38.7-73.9); Platelet Count 123 T/CUMM (130-400); Red Blood Count 5.18 MC/CUMM (3.8-5.5); Red Cell Distribution Width 12.8 % (9.3-17.3); White Blood Count 13.8 T/CUMM (4-12)
[2017-05-15] MEDS: SODIUM CHLORIDE 0.9% 1,000 ML IV SCH ×2 (01:02→08:28)
[2017-05-15 02:32] LABS: Apearance,Urine CLOUDY (Clear); Bilirubin,Urine Negative (Negative); Blood, Urine Negative (Negative); Glucose,Urine (UA) 50 mg/dL (Negative); Hyaline Casts,Urine 21 /LPF (0-3); Ketones,Urine 5 mg/dL (Negative); Mucus,Urine Many /LPF (Occasional); Nitrite,Urine Negative (Negative); Protein,Urine 100 MG/DL; RBC,Urine 6 /HPF (0-4); Squamous Epithelial Cell,Urine Occasional /HPF (0-10); Urine Color Amber (Yellow); Urine Specific Gravity 1.029 (1.001-1.035); Urine Urobilinogen < 2.0 EU/DL (0.2-1.0); WBC,Urine 61 /HPF (0-6)
[2017-05-15 03:11] LABS: Allen Test Positive; Pt O2 Delivery Device BIPAP
[2017-05-15 03:12] LABS: ABG Base Excess -8.4 MMOL/L (-2.5-2.5); ABG HCO3 16.2 MMOL/L (20-26); ABG Oxygen Saturation 99.4 % (95-100); ABG PCO2 31.2 MM HG (35-48); ABG PH 7.334 (7.35-7.45); ABG PO2 275.7 MM HG (80-95); ABG TCO2 17.2 MMOL/L (23-27)
[2017-05-15] MEDS ORDERED: LEVOFLOXACIN INJ 750 MG in PREMIX 1 EACH IV SCH (09:00)
[2017-05-15] MEDS ORDERED: ENOXAPARIN 40 MG/0.4 ML SYRINGE SUBCUT SCH (09:00)
[2017-05-15] MEDS: LORazepam 2 MG/1 ML VIAL IV PRN (16:27)
[2017-05-16] MEDS: MORPHINE 2 MG/1 ML SYRINGE IV PRN ×2 (08:43→19:56)
[2017-05-16] MEDS ORDERED: IBUPROFEN 200 MG TABLET PO PRN (10:43)
[2017-05-16] MEDS: LORazepam 2 MG/1 ML VIAL IV PRN ×2 (13:33→17:13)
[2017-05-17] MEDS: LORazepam 2 MG/1 ML VIAL IV PRN (01:30)
[2017-05-17] MEDS: MEMANTINE 10 MG TABLET PO SCH ×2 (01:55→10:21)
[2017-05-17] MEDS: DONEPEZIL 10 MG TABLET PO SCH (01:55)
[2017-05-17] MEDS: TAMSULOSIN 0.4 MG CAPSULE PO SCH ×2 (01:55→10:21)
[2017-05-17] MEDS: MORPHINE 2 MG/1 ML SYRINGE IV PRN ×3 (03:01→10:10)
[2017-05-17] MEDS: LEVOTHYROXINE 25 MCG TABLET PO SCH (07:04)
[2017-05-17] MEDS: DUTASTERIDE 0.5 MG CAPSULE PO SCH (10:20)
[2017-05-17] MEDS: VENLAFAXINE 75 MG TABLET PO SCH (10:21)
[2017-05-18] MEDS: TAMSULOSIN 0.4 MG CAPSULE PO SCH ×3 (02:19→21:55)
[2017-05-18] MEDS: DONEPEZIL 10 MG TABLET PO SCH ×2 (02:19→21:54)
[2017-05-18] MEDS: MEMANTINE 10 MG TABLET PO SCH ×3 (02:19→21:55)
[2017-05-18] MEDS: LEVOTHYROXINE 25 MCG TABLET PO SCH (06:36)
[2017-05-18] MEDS: VENLAFAXINE 75 MG TABLET PO SCH (10:22)
[2017-05-18] MEDS: DUTASTERIDE 0.5 MG CAPSULE PO SCH (10:22)
[2017-05-18] MEDS: LORazepam 2 MG/1 ML VIAL IV PRN ×3 (10:42→21:53)
[2017-05-18] MEDS: MORPHINE 2 MG/1 ML SYRINGE IV PRN ×2 (12:45→18:04)
[2017-05-18] MEDS ORDERED: ALPRAZolam 0.25 MG TABLET PO PRN (17:15)
[2017-05-19] MEDS: MORPHINE 2 MG/1 ML SYRINGE IV PRN (00:42)
[2017-05-19] MEDS: LEVOTHYROXINE 25 MCG TABLET PO SCH (06:32)
[2017-05-19] MEDS: VENLAFAXINE 75 MG TABLET PO SCH (08:19)
[2017-05-19 12:08] VITALS: BP 139/83
[2017-05-19] MEDS: DUTASTERIDE 0.5 MG CAPSULE PO SCH (13:11)
[2017-05-19] MEDS: MEMANTINE 10 MG TABLET PO SCH (13:12)
[2017-05-19] MEDS: TAMSULOSIN 0.4 MG CAPSULE PO SCH (13:12)
== END 2017-05-19 15:19 | disposition hospice, inpatient (51) | DRG 177 ==
LOC: EDBD → EDUNIT# → N.ED 20:46 → N.EDINP 22:42 → SUATTDRO 22:42 → N.CC 23:05 → N.2E 05-16 14:57
PROVIDERS: ADMIT Internal Medicine; ATTEND Hospitalist